=== PATIENT | female | born 1955 | race Caucasian/White ===

== ENCOUNTER 2017-04-03 08:24 | Emergency (ER) | payer OTHER ==
[~2017-04-03] VITALS: Ht 170.2 cm; Wt 65.8 kg
[2017-04-03] MEDS ORDERED: LISI40TA4 PO (08:36)
[2017-04-03] MEDS ORDERED: HYDR-3972 PO (08:36)
[2017-04-03] MEDS ORDERED: AMLO5TAB2 PO (08:36)
--- NOTE | 2017-04-03 08:42 | NUR ---
Dr Lindsey at the bedside for eval and exam.
[2017-04-03] MEDS ORDERED: ONDANSETRON 4 MG/2 ML VIAL IV ONE (09:00)
[2017-04-03] MEDS ORDERED: MORPHINE SULFATE 2 MG/1 ML DISP.SYRIN IV ONE ×2 (09:00→09:15)
[2017-04-03] MEDS ORDERED: ONDANSETRON 4 MG/2 ML VIAL ONE (09:09)
[2017-04-03] MEDS ORDERED: MORPHINE SULFATE 2 MG/1 ML DISP.SYRIN ONE ×2 (09:09→09:20)
[2017-04-03 09:12] LABS: EOSINOPHILS # (AUTO) 0.1 K/uL (0.0-0.7); EOSINOPHILS % (AUTO) 2.2 % (0.0-7.0); HEMATOCRIT 45.2 % (37-47); HEMOGLOBIN 14.8 G/DL (12.0-16.0); LYMPHOCYTES # (AUTO) 1.8 K/UL (0.8-4.8); LYMPHOCYTES % (AUTO) 40.7 % (20.5-51.5); MEAN CORPUSCULAR HEMOGLOBIN 28.8 UUG (27.0-31.0); MEAN CORPUSCULAR HGB CONC 33 g/dL (32.0-37.0); MEAN CORPUSCULAR VOLUME 87.8 FL (81.0-99.0); MONOCYTES # (AUTO) 0.3 K/UL (0.1-1.30); MONOCYTES % (AUTO) 6.4 % (0.0-11.0); NEUTROPHILS # (AUTO) 2.2 K/UL (1.8-8.9); NEUTROPHILS % (AUTO) 49.7 % (38.5-71.5); PLATELET COUNT (AUTO) 148 K/UL (150-450); RED BLOOD CELL COUNT(AUTO) 5.15 MIL/UL (4.2-5.4); WHITE BLOOD COUNT (AUTO) 4.4 K/UL (4.0-11.2)
[2017-04-03] MEDS ORDERED: diphenhydrAMINE 50 MG/1 ML VIAL IV ONE (09:15)
[2017-04-03] MEDS ORDERED: METOCLOPRAMIDE HCL 10 MG/2 ML VIAL IV ONE (09:15)
--- NOTE | 2017-04-03 09:15 | NUR ---
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 PT OUT OF ER FOR CT.
[2017-04-03] MEDS ORDERED: METOCLOPRAMIDE HCL 10 MG/2 ML VIAL ONE (09:16)
[2017-04-03] MEDS ORDERED: diphenhydrAMINE 50 MG/1 ML VIAL ONE (09:16)
[2017-04-03 09:17] LABS: CREATININE 0.9 mg/dL (0.6-1.3); POTASSIUM 3.7 mmol/L (3.5-5.1)
[2017-04-03 09:24] LABS: BILIRUBIN,DIRECT 0.1 mg/dL (0.0-0.2); BILIRUBIN,TOTAL 0.3 mg/dL (0.2-1.0); TOTAL PROTEIN, SERUM 7.9 g/dL (6.4-8.2)
--- NOTE | 2017-04-03 09:29 | NUR ---
PT BACK FROM CT.
[2017-04-03 09:36] LABS: *BILIRUBIN,URIN NEGATIVE (NEGATIVE); *BLOOD, URINE NEGATIVE (NEGATIVE); *CLARITY,URINE CLEAR (CLEAR); *COLOR,URINE YELLOW (YELLOW); *KETONES,URINE NEGATIVE (NEGATIVE); *PROTEIN,URINE NEGATIVE (NEGATIVE); *UROBILINOGEN,URINE 0.2 E.U./dl (NORMAL); LEUKOCYTE ESTERASE ,URINE 1+ (NEGATIVE); NITRITE, URINE NEGATIVE (NEGATIVE); PH,URINE 5.5 (5.0-8.0); UGLUCOSE NEGATIVE (NEGATIVE)
[2017-04-03 09:45] LABS: RBC,URINE 0-3 /HPF (0-3)
[2017-04-03 09:46] LABS: BACTERIA,URINE NONE SEEN /HPF (NONE SEEN); SQUAMOUS EPITHELIAL CELL,UR FEW /HPF (NONE SEEN)
[2017-04-03 10:03] VITALS: BP 113/67
--- NOTE | 2017-04-03 10:07 | NUR ---
IV removed. Catheter intact and site benign. Pressure and 4x4 gauze applied to site. No bleeding noted.
--- NOTE | 2017-04-03 10:07 | NUR ---
Patient discharged to home in stable conditon. Written and verbal after care instructions given. Patient verbalizes understanding of instructions.
== END 2017-04-03 10:07 | disposition home or self-care (01) ==
LOC: ER 08:24
DX: R51 Headache (principal); I10 Essential (primary) hypertension; Z88.8 Allergy status to other drugs, medicaments and biological substances
CPT/HCPCS: 36415; 70030-TC; 70450; 85025; 85730; A4663; J1200; J2270; J2405; J2765

== ENCOUNTER 2020-11-14 04:48 | Emergency (ER) | payer OTHER ==
[~2020-11-14] VITALS: Ht 167.6 cm; Wt 78.0 kg
[~2020-11-14 04:48] MED LIST: AMLO-212 PO; HYDR-3972 PO; LISI40TA13 PO
[2020-11-14] MEDS ORDERED: LIDOCAINE VISCUS 2% 15 ML UDC MM ONE (05:15)
[2020-11-14] MEDS ORDERED: IV NORMAL SALINE 1000 ML BAG IV ONE ×2 (05:15→07:45)
[2020-11-14] MEDS ORDERED: PANTOPRAZOLE SODIUM 40 MG VIAL IV ONE (05:15)
[2020-11-14] MEDS ORDERED: MAG HYDROX/AL HYDROX/SIMETH 30 ML LIQUID UDC PO ONE (05:15)
[2020-11-14] MEDS ORDERED: MAG HYDROX/AL HYDROX/SIMETH 30 ML LIQUID UDC ONE (05:20)
[2020-11-14] MEDS ORDERED: LIDOCAINE VISCUS 2% 15 ML UDC ONE (05:20)
[2020-11-14] MEDS ORDERED: PANTOPRAZOLE SODIUM 40 MG TABLET.DR PO ONE (05:21)
[2020-11-14 05:25] LABS: BASOPHILS % (AUTO) 0.6 % (0.0-2.0); EOSINOPHILS # (AUTO) 0.1 K/uL (0.0-0.7); EOSINOPHILS % (AUTO) 1.5 % (0.0-7.0); HEMATOCRIT 41.2 % (31.2-41.9); HEMOGLOBIN 13.4 g/dL (10.9-14.3); LYMPHOCYTES # (AUTO) 1.9 K/uL (20.0-40.0); LYMPHOCYTES % (AUTO) 31.2 % (20.5-51.5); MEAN CORPUSCULAR HEMOGLOBIN 28.5 uug (24.7-32.8); MEAN CORPUSCULAR HGB CONC 33 g/dL (32.3-35.6); MEAN CORPUSCULAR VOLUME 87.6 fL (75.5-95.3); MONOCYTES # (AUTO) 0.4 K/uL (2.0-10.0); MONOCYTES % (AUTO) 6.7 % (0.0-11.0); NEUTROPHILS # (AUTO) 3.6 K/uL (1.8-8.9); PLATELET COUNT (AUTO) 173 K/uL (179-408)
[2020-11-14 05:32] LABS: CREATININE 0.8 mg/dL (0.6-1.3); POTASSIUM 3.9 mmol/L (3.5-5.1)
[2020-11-14 05:36] LABS: BILIRUBIN,DIRECT 0.1 mg/dL (0.0-0.2); BILIRUBIN,TOTAL 0.1 mg/dL (0.2-1.0); TOTAL PROTEIN, SERUM 7.3 g/dL (6.4-8.2)
--- NOTE | 2020-11-14 05:39 | NUR ---
65 y/o female presents to ED from home for Abdominal Pain. Pain is described as heaviness/pressure is 8/10 and is centered right above the umbilicus and radiates outwards bilaterally. is at bedside as well. Patient is A&Ox4. Cooperative and pleasant. No SI/HI. Patient is Sinus Rhythm on the monitor. Blood pressure 153/88 upon initial assessment. No palpitations, no diaphoresis. No SOB. Lungs clear bilaterally. GI/: No N/V/D. Patient reports a smaller than usual bowel movement on 11/13/20 which was her last bm.
[2020-11-14] MEDS ORDERED: ONDANSETRON 4 MG/2 ML VIAL IV ONE (06:00)
[2020-11-14] MEDS ORDERED: MORPHINE SULFATE 4 MG/1 ML DISP.SYRIN IV ONE (06:00)
[2020-11-14 06:02] LABS: *BILIRUBIN,URIN NEGATIVE (NEGATIVE); *CLARITY,URINE CLEAR (CLEAR); *KETONES,URINE NEGATIVE (NEGATIVE); *UROBILINOGEN,URINE 0.2 E.U./dl (NORMAL); LEUKOCYTE ESTERASE ,URINE 2+ (NEGATIVE); NITRITE, URINE NEGATIVE (NEGATIVE); PH,URINE 5.5 (5.0-8.0); UGLUCOSE NEGATIVE (NEGATIVE)
[2020-11-14 06:03] LABS: *BLOOD, URINE TRACE (NEGATIVE); *COLOR,URINE STRAW (YELLOW)
[2020-11-14] MEDS ORDERED: ONDANSETRON 4 MG/2 ML VIAL ONE (06:03)
[2020-11-14] MEDS ORDERED: MORPHINE SULFATE 4 MG/1 ML DISP.SYRIN ONE (06:03)
--- NOTE | 2020-11-14 06:39 | NUR ---
Pt down for CT Abdomen at this time.
--- NOTE | 2020-11-14 07:30 | NUR ---
Received patient in shift report
[2020-11-14] MEDS ORDERED: CEFTRIAXONE 1 G in IV DEXTROSE 5% 50 ML IV ONE (07:45)
[2020-11-14] MEDS ORDERED: CEFTRIAXONE /D5W 50ML IVPB **ER PYXIS IV ONE (07:48)
[2020-11-14 07:53] LABS: BACTERIA,URINE NONE SEEN /HPF (NONE SEEN); RBC,URINE 0-3 /HPF (0-3); SQUAMOUS EPITHELIAL CELL,UR FEW /HPF (NONE SEEN)
--- NOTE | 2020-11-14 07:58 | NUR ---
[facility] ([facility] WAS NOTIFIED OF ORDER.
[2020-11-14] MEDS ORDERED: CEPH500C2 PO (08:25)
--- NOTE | 2020-11-14 08:49 | NUR ---
Ultrasound noted at bedside
--- NOTE | 2020-11-14 08:53 | NUR ---
Patient discharged to home in stable condition. Will return for CD of CT and ultrasound. Written and verbal after care instructions given. no signs of acute distress, noted ambulating with to private car. Patient verbalizes understanding of instructions. Stressed follow up or return to ER for worsening s/s.
[2020-11-14 09:03] VITALS: BP 129/74
== END 2020-11-14 09:00 | disposition home or self-care (01) ==
LOC: ER 04:53
DX: R10.13 Epigastric pain (principal); N39.0 Urinary tract infection, site not specified; R79.89 Other specified abnormal findings of blood chemistry; Z82.49 Family history of ischemic heart disease and other diseases of the circulatory system; K80.20 Calculus of gallbladder without cholecystitis without obstruction; Z88.8 Allergy status to other drugs, medicaments and biological substances
CPT/HCPCS: 36415; 71045; 74176; 76705; 80048; 80076; 81001; 83690; 84484; 85025; 87086; 93005; 96361; 96365; 96375; 99285; J0696; J2270; J2405; 70030-TC; A4663; J7030